=== PATIENT | female | born 1945 | race Caucasian/White ===

== ENCOUNTER → 2017-03-04 | Outpatient (CLI) | payer OTHER ==
[~2017-03-04] MED LIST: ALDACTONE25 MG PO; AMBIEN 10 MG TA10 MG PO; APAP650 PO; APHEN325 MG; ASPIRIN325 PO; ATORVASTATIN CA20 MG PO; BAYER CHEWABLE81 MG PO; CIPROFLOXACIN500 M1 PO; COUMADIN 2 MG TA2 M1 PO; DEMADEX20 MG PO; DULERA 100 MCG/13 GM; DULERA 200 MCG/13 GM INH; HUMALOG100 UNIT/1 SUBQ; LANTUS SUBQ; LANTUS100 UNIT/M SUBQ; LASIX 20 MG TAB20 MG PO; LIPITOR 20 MG T20 M1 PO; LISINOPRIL20 MG PO; LISINOPRIL40 MG PO; LOPERAMIDE 2 MG2 M1 PO; MACROBID 100 M100 MG PO; NORVASC10 MG PO; NOVOLOG100 UNIT/1 SUBQ; ONDANSETRON HCL4 M2 PO; PROAIR HFA8.5 GM INH; TOPROL XL100 MG PO; TOPROL XL50 MG PO
== END ==
LOC: ULTRA 04:06
DX: I65.23 Occlusion and stenosis of bilateral carotid arteries (principal); I25.10 Atherosclerotic heart disease of native coronary artery without angina pectoris

== ENCOUNTER → 2017-05-06 | Outpatient (CLI) | payer OTHER | LOC: CAT 05-04 12:58 | DX: I25.10 Atherosclerotic heart disease of native coronary artery without angina pectoris (principal); J84.9 Interstitial pulmonary disease, unspecified ==

== ENCOUNTER → 2017-11-30 | Outpatient (CLI) | payer OTHER | LOC: RAD 14:30 | DX: J44.9 Chronic obstructive pulmonary disease, unspecified (principal); I70.0 Atherosclerosis of aorta; I51.7 Cardiomegaly; L92.9 Granulomatous disorder of the skin and subcutaneous tissue, unspecified; J84.9 Interstitial pulmonary disease, unspecified; I63.9 Cerebral infarction, unspecified ==

== ENCOUNTER → 2017-12-16 | Outpatient (CLI) | payer OTHER | LOC: NUC 11:20 | DX: M85.89 Other specified disorders of bone density and structure, multiple sites (principal); N91.2 Amenorrhea, unspecified; J44.9 Chronic obstructive pulmonary disease, unspecified; I63.9 Cerebral infarction, unspecified; G47.33 Obstructive sleep apnea (adult) (pediatric); N17.0 Acute kidney failure with tubular necrosis; J96.00 Acute respiratory failure, unspecified whether with hypoxia or hypercapnia; I50.33 Acute on chronic diastolic (congestive) heart failure; I12.0 Hypertensive chronic kidney disease with stage 5 chronic kidney disease or end stage renal disease; N18.5 Chronic kidney disease, stage 5; I25.10 Atherosclerotic heart disease of native coronary artery without angina pectoris; E78.5 Hyperlipidemia, unspecified; E11.29 Type 2 diabetes mellitus with other diabetic kidney complication; Z90.710 Acquired absence of both cervix and uterus; Z87.891 Personal history of nicotine dependence; Z78.0 Asymptomatic menopausal state ==

== ENCOUNTER 2018-03-01 15:07 | Emergency (ER) | payer OTHER ==
[~2018-03-01] VITALS: Ht 160 cm; Wt 121.1 kg
== END 2018-03-01 17:34 ==
LOC: ER 15:07
DX: I46.9 Cardiac arrest, cause unspecified (principal); J44.9 Chronic obstructive pulmonary disease, unspecified; I12.9 Hypertensive chronic kidney disease with stage 1 through stage 4 chronic kidney disease, or unspecified chronic kidney disease; E11.22 Type 2 diabetes mellitus with diabetic chronic kidney disease; N18.3 Chronic kidney disease, stage 3 (moderate); E78.00 Pure hypercholesterolemia, unspecified; Z87.891 Personal history of nicotine dependence; Z88.8 Allergy status to other drugs, medicaments and biological substances